=== PATIENT | female | born 1955 | race Two or more races ===

== ENCOUNTER 2018-12-26 04:14 | Inpatient (IN) | payer MEDICARE, MEDICAID ==
[~2018-12-26] VITALS: Ht 154.9 cm; Wt 68.0 kg
--- NOTE | 2018-12-26 04:21 | NUR ---
PT BRIGHT FROM [facility] C/O LOW BLOOD SUGAR 35MD/DL, PT IS AAOX3, NOT IN RESPIRATORY DISTRESS, HOOKED TO PLANT MAINTENANCE MANAGER, V/S STABLE, KEPT RESTED AND COMFORTABLE, AWAITING ER MD FOR EVAL, WILL CONTIUE TO MONITOR.
--- NOTE | 2018-12-26 04:27 | NUR ---
AT BEDSIDE FOR EVAL.
[2018-12-26] MEDS ORDERED: MELA3TAB11 PO (04:48)
[2018-12-26] MEDS ORDERED: METH-406 PO (04:48)
[2018-12-26] MEDS ORDERED: BISA-79 PR (04:49)
[2018-12-26] MEDS ORDERED: NA P133E RC (04:49)
[2018-12-26] MEDS ORDERED: MAGN400O21 PO (04:50)
[2018-12-26] MEDS ORDERED: TYL2T MC (04:51)
[2018-12-26] MEDS ORDERED: ACET325C7 PO (04:51)
[2018-12-26] MEDS ORDERED: VITA1TAB56 PO (04:51)
[2018-12-26] MEDS ORDERED: AMLO5TAB9 PO (04:52)
[2018-12-26] MEDS ORDERED: CRAN450C PO (04:52)
--- NOTE | 2018-12-26 04:52 | NUR ---
BLOOD DRAWN, URINE SPECIMEN AND SENT TO LAB.
[2018-12-26] MEDS ORDERED: LIDO30CR TP (04:53)
[2018-12-26] MEDS ORDERED: SEVE800T8 PO (04:53)
[2018-12-26] MEDS ORDERED: METO25TA4 PO (04:53)
[2018-12-26] MEDS ORDERED: SENN-168 PO (04:54)
[2018-12-26] MEDS ORDERED: ESCI10TA PO (04:54)
[2018-12-26] MEDS ORDERED: GABA-534 PO (04:55)
[2018-12-26] MEDS ORDERED: HYDR-4077 PO (04:55)
[2018-12-26] MEDS ORDERED: *INS HUMA SQ (04:56)
[2018-12-26 04:57] LABS: BASOPHILS # (AUTO) 0.1 /CMM (0.0-0.2); BASOPHILS % (AUTO) 1.2 % (0.0-2.0); EOSINOPHILS % (AUTO) 2.5 % (0.0-6.0); HEMATOCRIT 38 % (33-45); HEMOGLOBIN 12.1 g/dL (11.5-14.8); LYMPHOCYTES # (AUTO) 0.8 /CMM (0.8-4.8); LYMPHOCYTES % (AUTO) 7.9 % (20.0-44.0); MEAN CORPUSCULAR HGB CONC 32 g/dl (31.0-36.0); MEAN CORPUSCULAR VOLUME 93 fL (82-100); MONOCYTES # (AUTO) 0.5 /CMM (0.1-1.30); MONOCYTES % (AUTO) 4.7 % (2.0-12.0); NEUTROPHILS # (AUTO) 8.5 /CMM (1.8-8.9); NEUTROPHILS % (AUTO) 83.7 % (43.0-81.0); PLATELET COUNT (AUTO) 219 /CMM (150-450); RED BLOOD CELL COUNT(AUTO) 4.07 MIL/uL (4.0-5.2); WHITE BLOOD COUNT (AUTO) 10.2 K/uL (4.3-11.0)
[2018-12-26] MEDS ORDERED: INSU100I26 SQ (04:57)
[2018-12-26 05:10] LABS: APPEARANCE,URINE Turbid (CLEAR); BILIRUBIN,URINE SMALL (NEGATIVE); BLOOD, URINE Moderate Ery/uL (NEGATIVE); COLOR,URINE Yellow (YELLOW); KETONES,URINE Trace (NEGATIVE); LEUKOCYTE ESTERASE ,URINE Large (NEGATIVE); NITRITE, URINE Negative (NEGATIVE); PROTEIN,URINE >=300 mg/dl (NEGATIVE); UGLUCOSE Negative (NEGATIVE); UROBILINOGEN,URINE 0.2 EU/dL (0.2)
[2018-12-26 05:12] LABS: ALBUMIN 3.5 g/dL (3.4-5.0); BILIRUBIN,DIRECT 0.1 mg/dL (0.0-0.2); BILIRUBIN,TOTAL 0.4 mg/dL (0.2-1.0); CALCIUM, SERUM 8.2 mg/dL (8.5-10.1); POTASSIUM 4.7 mmol/L (3.5-5.1); TOTAL PROTEIN, SERUM 7.6 g/dL (6.4-8.2)
[2018-12-26 05:28] LABS: BACTERIA,URINE 4+ /HPF (None Seen); WBC,URINE NONE SEEN /HPF (0-3)
[2018-12-26 05:43] LABS: THYROID STIMULATING HORMONE 5.84 uIU/mL (0.358-3.74)
[2018-12-26] MEDS ORDERED: ACETAMINOPHEN 325 MG TABLET PO PRN (06:00)
[2018-12-26] MEDS ORDERED: MAGNESIUM HYDROXIDE 30 ML UDC PO PRN (06:00)
[2018-12-26] MEDS ORDERED: HYDROCODONE/APAP 5/325MG 1 EACH TABLET PO PRN (06:00)
[2018-12-26] MEDS ORDERED: MAG HYDROX/AL HYDROX/SIMETH 30 ML UDC PO PRN (06:00)
[2018-12-26] MEDS ORDERED: MORPHINE SULFATE INJ 2 MG/ML DISP.SYRIN IV PRN (06:00)
[2018-12-26] MEDS ORDERED: CEFTRIAXONE 1GM BAG (ER ONLY) 1 GM/50 ML PIGGYBACK IV ONE (06:00)
[2018-12-26] MEDS ORDERED: TEMAZEPAM 15 MG CAPSULE PO PRN (06:00)
[2018-12-26] MEDS ORDERED: CEFTRIAXONE 1GM BAG (ER ONLY) 50 ML IV ONE (06:05)
--- NOTE | 2018-12-26 06:41 | NUR ---
REPORT GIVEN TO NIKOLAS MOODY FOR LUCIA.
--- NOTE | 2018-12-26 07:17 | NUR ---
REPORT GIVEN TO NIKOLAS OLSON FOR LUCIA.
--- NOTE | 2018-12-26 07:18 | NUR ---
ENDORSEMENT RECEIVED FROM HASMUKH RN FOR LUCIA. PATIENT ASLEEP IN BED, EASILY AROUSABLE BY VOICE. ON BENNIE HUGGER, HOOKED TO FERRYBOAT DECKHAND, STABLE VITAL SIGNS. WILL CONTINUE TO MONITOR.
[2018-12-26] MEDS: BLOOD SUGAR DIAGNOSTIC 1 EACH STRIP IN SCH ×7 (07:30→22:00)
[2018-12-26 08:00] VITALS: BP 128/57
[2018-12-26 08:30] VITALS: BP 128/64
--- NOTE | 2018-12-26 08:30 | NUR ---
RN OPENING NOTE RECEIVED PATENT FROM ER. ON ROOM AIR SATURATING 98%. PUT PATIENT ON TELE MONITOR SR 72. NO SIGN OF RESPIRATORY/CARDIAC DISTRESS OR SOB NOTED. BS 81. AT BEDSIDE. SAFETY MEASURES IN PLACE. BED LOW AND LOCKED. SIDE RAILS UPX2, CALL LIGHT IN REACH. WILL CON MONITOR.
--- NOTE | 2018-12-26 08:45 | NUR ---
BREAKFAST ORDERED FOR THE PATIENT AND SHE IS EATING THE BREAKFAST.
[2018-12-26] MEDS: ASPIRIN 81 MG TAB.CHEW PO SCH (11:22)
[2018-12-26 12:00] VITALS: BP 123/65
[2018-12-26] MEDS ORDERED: LIDOCAINE/PRILOCAINE (5GM) 5 GM TUBE TP SCH (12:00)
[2018-12-26] MEDS ORDERED: BLOOD SUGAR DIAGNOSTIC 1 EACH STRIP IN SCH (12:00)
[2018-12-26] MEDS: Sodium Chloride 154 MEQ in IV 10% DEXTROSE 1,000 ML IV PRN (13:40)
[2018-12-26] MEDS: METHOCARBAMOL (500MG) 500 MG TABLET PO SCH ×2 (14:11→17:00)
[2018-12-26] MEDS: SEVELAMER CARBONATE 800 MG TABLET PO SCH ×2 (14:12→18:38)
--- NOTE | 2018-12-26 14:12 | NUR ---
called pharmacy to bring insulin.
[2018-12-26] MEDS ORDERED: DEXTROSE 50%-WATER 50 ML DISP.SYRIN IV PRN (14:30)
[2018-12-26] MEDS: INSULIN REGULAR, HUMAN 100 UNIT/ML 3 ML VIAL SQ PRN ×3 (15:24→23:36)
[2018-12-26 16:00] VITALS: BP_SYST 154; BP_SYST 159; BP_DIAS 73; BP_DIAS 78
--- NOTE | 2018-12-26 18:39 | NUR ---
PT REFUSED ROBAXIN ZAElton 17:00 SAID IT MAKES ME FEEL DIZZY. BENEFITS EXPLAINED BUT STILL REFUSING.
--- NOTE | 2018-12-26 19:15 | NUR ---
PATIENT IN BED, AWAKE, AND VERBALLY RESPONSIVE. NO SOB. NO C/O PAIN AT THIS TIME. (L) AC IV ACCESS G20 INTACT, PATENT, AND FLUSHING WELL. SAFETY PRECAUTIONS IMPLEMENTED. BED LOCKED AND IN LOWEST POSITION. CALL LIGHT PLACED WITHIN REACH. WILL CONT. TO MONITOR. Addendum: 12/26/18 at 2053 by MENG HILL RN RN OPENING NOTES:
[2018-12-26 20:00] VITALS: BP 144/77
--- NOTE | 2018-12-26 20:00 | NUR ---
RN NOTE: PATIENT C/O NOT BEING ABLE TO BREATHE PROPERLY. O2 SAT ON RA 90%. CHARGE NURSE PLACED PATIENT ON O2 AT 2 LPM VIA NC, TOLERATING WELL, O2 SAT WENT UP TO 94%. PATIENT VERBALIZED FEELING OF RELIEF. WILL CONT. TO MONITOR.
--- NOTE | 2018-12-26 21:18 | NUR ---
RN CLOSING NOTE NO SIGNIFICANT CHANGE DURING THE SHIFT. BS COVERED TROUGH SLIDING SCALE. NO SIGN OF RESPIRATORY/CARDIAC DISTRESS OR SOB NOTED. SKIN INTACT. KEPT CLEAN AND DRY. DIAPER ON. ALL NEEDS ATTENDED. BED LOW AND LOCKED, SIDE RAILS UP X2, CALL LIGHT IN REACH. ENDORSED TO PM NURSE FOR LUCIA.
[2018-12-27] VITALS: BP 156/77
[2018-12-27] MEDS: SENNOSIDES 8.6 MG TABLET PO SCH ×2 (00:13→22:42)
[2018-12-27] MEDS: CEFTRIAXONE 1 G in IV D5W 50 ML IV SCH (05:20)
[2018-12-27 06:29] LABS: BASOPHILS # (AUTO) 0.1 /CMM (0.0-0.2); BASOPHILS % (AUTO) 1.3 % (0.0-2.0); EOSINOPHILS % (AUTO) 4.1 % (0.0-6.0); HEMATOCRIT 34 % (33-45); HEMOGLOBIN 11.1 g/dL (11.5-14.8); LYMPHOCYTES # (AUTO) 1.3 /CMM (0.8-4.8); LYMPHOCYTES % (AUTO) 16.6 % (20.0-44.0); MEAN CORPUSCULAR HGB CONC 32 g/dl (31.0-36.0); MEAN CORPUSCULAR VOLUME 92 fL (82-100); MONOCYTES # (AUTO) 0.7 /CMM (0.1-1.30); MONOCYTES % (AUTO) 8.5 % (2.0-12.0); NEUTROPHILS # (AUTO) 5.6 /CMM (1.8-8.9); NEUTROPHILS % (AUTO) 69.5 % (43.0-81.0); PLATELET COUNT (AUTO) 204 /CMM (150-450); RED BLOOD CELL COUNT(AUTO) 3.74 MIL/uL (4.0-5.2); WHITE BLOOD COUNT (AUTO) 8.1 K/uL (4.3-11.0)
[2018-12-27 06:50] LABS: CALCIUM, SERUM 7.9 mg/dL (8.5-10.1); CREATININE 5.2 mg/dL (0.6-1.3); MAGNESIUM 2.2 mg/dL (1.8-2.4); PHOSPHORUS 5.7 mg/dL (2.5-4.9); POTASSIUM 5.1 mmol/L (3.5-5.1)
--- NOTE | 2018-12-27 07:10 | NUR ---
RN OPENING NOTES RECEIVED PATIENT SLEEPING IN BED, EASILY AROUSED. SHE IS AOX2-3, VERBAL, AND ON BEDREST. SHE IS ON 2L OF O2 VIA NC, TOLERATING WELL, NO S/SX OF RESP DISTRESS OR SOB. PT DENIES ANY PAIN AT THIS TIME. SKIN IS INTACT, SWELLING AGROUND THE FACE AND EYES IS PRESENT. SHE IS ON CONSISTENT CARB DIET, TOLERATING WELL. LAC 20 INFUSING D10 AT 50 ML.HR, PALOMA AV SHUNT IS INTACT. SAFETY MEASURES HAVE BEEN IMPLEMENTED, CALL LIGHT IS WITHIN REACH, BED IS IN LOWEST AND LOCKED POSITION, SIDE RIALS UP X2, WILL CONTINUE TO MONITOR FOR ANY CHANGES.
--- NOTE | 2018-12-27 07:20 | NUR ---
RN CLOSING NOTES: PATIENT IN BED, ASLEEP, BUT EASILY AROUSABLE. NO SOB. NO C/O PAIN AT THIS TIME. SAFETY PRECAUTIONS IMPLEMENTED. BED LOCKED AND IN LOWEST POSITION. ALL NEEDS HAVE BEEN MET. CALL LIGHT PLACED WITHIN REACH. OFFERED TO SIGN CONSENT FOR HEMODIALYSIS. PATIENT DECLINED AT THIS TIME AND STATES SHE WANTS TO GO HOME. PATIENT AGREED TO SIGN HEMODIALYSIS CONSENT WHEN IT'S BEEN SCHEDULED. ENDORSED TO AM SHIFT NURSE FOR CONTINUITY OF CARE. Addendum: 12/27/18 at 0729 by MENG HILL RN NO SIGNS OF HYPOGLYCEMIA DURING SHIFT.
[2018-12-27] MEDS: BLOOD SUGAR DIAGNOSTIC 1 EACH STRIP IN SCH ×7 (07:55→22:43)
[2018-12-27 08:00] VITALS: BP_SYST 153; BP_DIAS 60; BP_DIAS 68
[2018-12-27] MEDS: METOPROLOL SUCCINATE 25 MG TAB.SR.24H PO SCH (08:33)
[2018-12-27] MEDS: VITAMIN B COMP W-C 1 TAB TABLET PO SCH (08:33)
[2018-12-27] MEDS: SEVELAMER CARBONATE 800 MG TABLET PO SCH ×3 (08:33→18:00)
[2018-12-27] MEDS: GABAPENTIN 300 MG CAPSULE PO SCH (08:33)
[2018-12-27] MEDS: ESCITALOPRAM OXALATE (10 MG) 10 MG TABLET PO SCH (08:34)
[2018-12-27] MEDS: hydrALAZINE HCL 50 MG TABLET PO SCH (08:34)
[2018-12-27] MEDS: ASPIRIN 81 MG TAB.CHEW PO SCH (08:34)
[2018-12-27] MEDS: BISACODYL (5 MG) 5 MG TABLET.DR PO SCH (08:34)
[2018-12-27] MEDS: AMLODIPINE BESYLATE 5 MG TABLET PO SCH (08:34)
[2018-12-27] MEDS: METHOCARBAMOL (500MG) 500 MG TABLET PO SCH ×3 (08:40→17:00)
[2018-12-27] MEDS: INSULIN REGULAR, HUMAN 100 UNIT/ML 3 ML VIAL SQ PRN ×3 (12:23→22:58)
[2018-12-27] MEDS ORDERED: LIDOCAINE 1% INJ 50 ML MDV IJ ONE (13:00)
[2018-12-27 16:00] VITALS: BP 138/87
[2018-12-27] MEDS: ONDANSETRON HCL/PF 4 MG/2 ML VIAL IVP PRN (17:32)
--- NOTE | 2018-12-27 18:35 | NUR ---
1700 and 1800 meds unable to admin due to pt being dialyzed.
--- NOTE | 2018-12-27 19:30 | NUR ---
RN CLOSING NOTES PATIENT IS RESTING COMFORTABLY IN BED, DENIES ANY PAIN OR DISCOMFORT AT THIS TIME. PT IS BEING DIALYZED, TOLERATING WELL. PT NEEDS HAVE BEEN MET, VITAL SIGNS ARE STABLE, NO ACUTE CHANGES OCCURRED THROUGHOUT THE SHIFT. SAFETY MEASURES HAVE BEEN IMPLEMENTED, CALL LIGHT IS WITHIN REACH, BED IS IN LOWEST AND LOCKED POSITION, SIDE RAILS UP X2, PT HAS BEEN ENDORSED TO NIGHTSHIFT RN FOR CONTINUITY OF CARE.
[2018-12-27] MEDS: Sodium Chloride 154 MEQ in IV 10% DEXTROSE 1,000 ML IV PRN (19:58)
[2018-12-27 20:00] VITALS: BP 168/69
--- NOTE | 2018-12-27 22:30 | NUR ---
RN NOTES RECEIVED ENDORSEMENT REPORT FROM NIKOLAS LYONS. FOUND Pt ASLEEP IN BED. Pt INSISTED THAT SHE LIKES SLEEPING ON THE OPPOSITE END OF THE BED. BED ALARM ON FOR SAFETY. Pt IS A/OX4, VERBAL, ABLE TO MAKE NEEDS KNOWN. IV ACCESS ON LAC #20G, D10 INFUSING @50ML/HR. S/P HD TODAY WITH 3L OUT. PALOMA AV FISTULA. SAFETY MEASURES IN PLACE. BED LOW, LOCKED, HOB ELEVATED, SIDE RAILS UP, CALL LIGHT AND BEDSIDE TABLE WITHIN REACH. WILL CONTINUE TO MONITOR Pt's CONDITION AND SAFETY THROUGHOUT THE NIGHT.
--- NOTE | 2018-12-27 22:45 | NUR ---
RN NOTES INFORMED SALES DEVELOPMENT ASSOCIATENIKOLAS ROBERTS OF THERE BEING 2 ORDERS OF ACCUCHECKS. SAID IT IS OK TO DC THE EARLIER ONE AND KEEP THE MOST RECENT ACCUCHECK ORDER.
[2018-12-28] VITALS: BP 168/69
[2018-12-28] MEDS: CEFTRIAXONE 1 G in IV D5W 50 ML IV SCH (05:35)
[2018-12-28] MEDS: BLOOD SUGAR DIAGNOSTIC 1 EACH STRIP IN SCH ×4 (07:30→22:00)
--- NOTE | 2018-12-28 07:30 | NUR ---
RN OPENING NOTES RECEIVED PATIENT SLEEPING IN BED, EASILY AROUSED. SHE IS AOX3, VERBAL. SHE IS ON ROOM AIR, NO S/SX OF RESP DISTRESS OR SOB. PT DENIES ANY PAIN AT THIS TIME. SKIN IS INTACT, SWELLING AGROUND THE FACE AND EYES NOTED. LAC 20 INFUSING D10 AT 50 ML/HR. PALOMA AV SHUNT IS INTACT. SAFETY MEASURES HAVE BEEN IMPLEMENTED, CALL LIGHT IS WITHIN REACH, BED IS IN LOWEST AND LOCKED POSITION, SIDE RIALS UP X3, WALKER AT BEDSIDE, BED ALARM ON. WILL CONTINUE TO MONITOR FOR ANY MADRID
--- NOTE | 2018-12-28 07:40 | NUR ---
RN CLOSING NOTES NO SIGNIFICANT CHANGES IN Pt's CONDITION. Pt IS RESTING COMFORTABLY IN BED, WITH EVEN AND UNLABORED RESPIRATIONS. NO S/S OF ACUTE DISTRESS OR SOB NOTED DURING THE NIGHT. ALL NEEDS MET AND ATTENDED TO. SAFETY MEASURES IN PLACE. WILL ENDORSE TO DAYSHIFT RN FOR Pt's LUCIA.
[2018-12-28 08:00] VITALS: BP 166/75
[2018-12-28] MEDS: VITAMIN B COMP W-C 1 TAB TABLET PO SCH (08:26)
[2018-12-28] MEDS: SEVELAMER CARBONATE 800 MG TABLET PO SCH ×3 (08:26→18:45)
[2018-12-28] MEDS: ASPIRIN 81 MG TAB.CHEW PO SCH (08:27)
[2018-12-28] MEDS: GABAPENTIN 300 MG CAPSULE PO SCH (08:27)
[2018-12-28] MEDS: BISACODYL (5 MG) 5 MG TABLET.DR PO SCH (08:27)
[2018-12-28] MEDS: ESCITALOPRAM OXALATE (10 MG) 10 MG TABLET PO SCH (08:27)
[2018-12-28] MEDS: hydrALAZINE HCL 50 MG TABLET PO SCH (08:29)
[2018-12-28] MEDS: AMLODIPINE BESYLATE 5 MG TABLET PO SCH (08:29)
[2018-12-28] MEDS: METOPROLOL SUCCINATE 25 MG TAB.SR.24H PO SCH (08:29)
[2018-12-28] MEDS: INSULIN REGULAR, HUMAN 100 UNIT/ML 3 ML VIAL SQ PRN ×4 (08:34→23:09)
[2018-12-28] MEDS: METHOCARBAMOL (500MG) 500 MG TABLET PO SCH ×3 (08:41→17:00)
--- NOTE | 2018-12-28 09:00 | NUR ---
MS RN NOTE PATIENT REFUSED ROBAXIN AND SAID: "IF I TAKE IT, MY LEGS GETS NUMBS. I NEVER GET THAT MEDICATION.'' BENEFITS AND SIDE EFFECTS EXPLAINED. PT REFUSED.
--- NOTE | 2018-12-28 09:28 | NUR ---
MS RN NOTE PATIENT WANTED TO GET OUT OF THE BED AND WALK. SHE SAID: "I FEEL TIRED BEING IN THE BED ALL THE DAY." ACCORDING TO PT BLESSING PATENT IS SAFE TO AMBULATE WITH ASSIST. PATIENT TOOK FOR 2 MIN WALK WITH WALKER WITH THE HELP OF NURSE AND STUDENT NURSE. PATIENT RETURNED TO BED SAFELY. SOB NOTED. PUT HER ON 2L NC. BED LOCKED AND LOW, SIDE RAILS UP X3. BED ALARM ON. CALL LIGHT IN REACH.
--- NOTE | 2018-12-28 12:43 | NUR ---
MS RN NOTE PATIENT AND HER SAID THEY NEED PATIENT TO BE DISCHARGED TODAY AND IF DOCTOR DOES NOT CLEAR PATIENT THEY WILL LEAVE ANYWAY. THE RISK FACTOR EXPLAINED TO THEM AND JUST TOLD THEM TO WAIT SEE THE DOCTOR AND THEY AGREED. DR BEAR MADE AWARE ABOUT PATIENT'S REQUEST. DR. BEAR MADE AWARE RECENT BS 253, TROPONIN 0.118, NO COMPLAIN OF CHEST PAIN AND PATIENT IS EATING WELL. DR BEAR SAID HE WILL MAKE ROUND AND SEE PATIENT.
--- NOTE | 2018-12-28 13:06 | NUR ---
MS RN NOTE RAHEEM Malcolm AT BEDSIDE WORKING WITH DR. BEAR. MADE AWARE REGARDING PATIENT'S REQUEST TO GET DISCHARGED. ALSO INFORMED ABOUT TROPONIN 0.118 ON 12/27/18 AND LAST BS 253, NO COMPLAIN OF CHEST PAIN. SHE SAID SHE WILL CHECK WITH DR BEAR.
[2018-12-28] MEDS ORDERED: CEPH-569 PO (15:59)
[2018-12-28 16:00] VITALS: BP 157/75
--- NOTE | 2018-12-28 16:21 | NUR ---
DR. BEAR PUT D/C ORDER. CALLED [facility] [employer] TO ARRANGE THE TRANSPORTATION. [facility]AVAL CONTACTED WITH [facility] FOR THE ARRANGEMENT BUT APPARENTLY THERE IS SOME INSURANCE ISSUES AND PATIENT CAN BE TRANSFERRED TOMORROW MORNING. DHAVAL TALKED TO THE PATIENT'S AND BOTH PATIENT AND AGREED. Addendum: 12/28/18 at 1857 by XAVIER ODEN RN DR. BEAR MADE AWARE.
--- NOTE | 2018-12-28 19:15 | NUR ---
MS RN NOTE PATIENT IN BED A/0 X 3-4. PATIENT SLEEPING WITH HEAD AT FOOT OF THE BED. PATIENT ADVISED TO SLEEP AT THE HEAD OF THE BED FOR HEAD PATIENT REFUSED. PATIENTS ON 2 L OS TOLERATING WELL AT THIS TIME. PATIENT DENIES SOB/ CHEST PAIN. PATIENT ON IV FLUIDS IV PATENT AND INTACT NO S/S OF INFECTION OR INFILTRATION. PATIENT. SAFETY PRECAUTIONS IN PLACE CALL LIGHT WITHIN HAND. RN WILL CONTINUE TO MONITIOR.
--- NOTE | 2018-12-28 19:18 | NUR ---
RN CLOSING NOTES NO SIGNIFICANT CHANGES IN Pt's CONDITION. Pt IS RESTING COMFORTABLY IN BED, WITH EVEN AND UNLABORED RESPIRATIONS. PATIENT ON 2L NC, NO S/S OF ACUTE DISTRESS OR SOB NOTED DURING THE SHIFT. ALL NEEDS MET AND ATTENDED. . WAS AT BEDSIDE EARLIER. SAFETY MEASURES IN PLACE. BED LOCKED AND LOW, SIDE RAILS UP X2, BED ALARM ON, WALKER AT BEDSIDE. ENDORSED TO PM RN FOR Pt's LUCIA. Addendum: 12/28/18 at 1922 by XAVIER ODEN RN RIGHT EYE BLINDNESS, REPORTED TO THE PM NURSE.
[2018-12-28] MEDS: Sodium Chloride 154 MEQ in IV 10% DEXTROSE 1,000 ML IV PRN (19:22)
[2018-12-28 20:00] VITALS: BP 123/75
[2018-12-28] MEDS: SENNOSIDES 8.6 MG TABLET PO SCH (22:00)
[2018-12-29] VITALS: BP 123/75
[2018-12-29 04:00] VITALS: BP 117/52
[2018-12-29] MEDS: CEFTRIAXONE 1 G in IV D5W 50 ML IV SCH (05:09)
--- NOTE | 2018-12-29 07:00 | NUR ---
RN OPENING NOTES RECEIVED PATIENT AOX4, VERBAL. SHE IS ON NC 4 L WITH COOL ARESOAL , NO S/S OF RESP DISTRESS OR SOB. PT DENIES ANY PAIN AT THIS TIME. SWELLING AGROUND THE FACE AND EYES NOTED. RIGHT VISION LOSS. LAC 20 G INFUSING D10 AT 50 ML/HR. PALOMA AV GRAFT IS INTACT. PATIENT COMPLAINING OF BEING WET AND HAD BOWEL MOVEMENT MORE THAN 1 HOUR AND SHE ALREADY CALLED SEVERAL TIMES TO BE CLEANED UP BUT NO ONE CAME. PATIENT SHEETS AND GOWN WAS DIRTY AND THERE WAS POOP ALL OVER HER BED. PATIENT WAS CLEANED, REDNESS NOTED ON THE SACRAL AREA. ZGUARD APPLIED. SAFETY MEASURES HAVE BEEN IMPLEMENTED, CALL LIGHT IS WITHIN REACH, BED IS IN LOWEST AND LOCKED POSITION, SIDE RIALS UP X3, WALKER AT BEDSIDE, BED ALARM ON. WILL CONTINUE TO MONITOR CLOSELY.
[2018-12-29 08:00] VITALS: BP 160/73
[2018-12-29] MEDS: SEVELAMER CARBONATE 800 MG TABLET PO SCH ×4 (08:00→17:04)
[2018-12-29 08:14] LABS: CALCIUM, SERUM 8.2 mg/dL (8.5-10.1); CREATININE 5.1 mg/dL (0.6-1.3); PHOSPHORUS 4.9 mg/dL (2.5-4.9); POTASSIUM 5.4 mmol/L (3.5-5.1)
[2018-12-29 08:23] LABS: BASOPHILS # (AUTO) 0.1 /CMM (0.0-0.2); BASOPHILS % (AUTO) 1.2 % (0.0-2.0); EOSINOPHILS % (AUTO) 5.2 % (0.0-6.0); HEMATOCRIT 35 % (33-45); HEMOGLOBIN 11.1 g/dL (11.5-14.8); LYMPHOCYTES # (AUTO) 1.2 /CMM (0.8-4.8); LYMPHOCYTES % (AUTO) 13.8 % (20.0-44.0); MEAN CORPUSCULAR HGB CONC 32 g/dl (31.0-36.0); MEAN CORPUSCULAR VOLUME 94 fL (82-100); MONOCYTES # (AUTO) 0.7 /CMM (0.1-1.30); MONOCYTES % (AUTO) 8.4 % (2.0-12.0); NEUTROPHILS # (AUTO) 6.2 /CMM (1.8-8.9); NEUTROPHILS % (AUTO) 71.4 % (43.0-81.0); PLATELET COUNT (AUTO) 178 /CMM (150-450); WHITE BLOOD COUNT (AUTO) 8.7 K/uL (4.3-11.0)
[2018-12-29] MEDS: INSULIN REGULAR, HUMAN 100 UNIT/ML 3 ML VIAL SQ PRN ×4 (08:56→22:55)
[2018-12-29] MEDS: BLOOD SUGAR DIAGNOSTIC 1 EACH STRIP IN SCH ×4 (08:56→22:00)
[2018-12-29] MEDS: AMLODIPINE BESYLATE 5 MG TABLET PO SCH ×2 (09:00→10:03)
[2018-12-29] MEDS: METOPROLOL SUCCINATE 25 MG TAB.SR.24H PO SCH ×2 (09:00→10:03)
[2018-12-29] MEDS: ESCITALOPRAM OXALATE (10 MG) 10 MG TABLET PO SCH ×2 (09:00→09:59)
[2018-12-29] MEDS: hydrALAZINE HCL 50 MG TABLET PO SCH ×2 (09:00→10:02)
[2018-12-29] MEDS: VITAMIN B COMP W-C 1 TAB TABLET PO SCH ×2 (09:00→09:59)
[2018-12-29] MEDS: ASPIRIN 81 MG TAB.CHEW PO SCH ×2 (09:00→09:59)
[2018-12-29] MEDS: GABAPENTIN 300 MG CAPSULE PO SCH ×2 (09:00→09:59)
[2018-12-29] MEDS: BISACODYL (5 MG) 5 MG TABLET.DR PO SCH (09:00)
--- NOTE | 2018-12-29 09:00 | NUR ---
PATIENT WILL HAVE HEMODIALYSIS THIS MORNING. AM MEDICATION HOLD.
--- NOTE | 2018-12-29 09:00 | NUR ---
PATIENT REFUSED ROBAXIN AND SHE SAID ; "IT MAKES MY FEET NUMB, I NEVER GET THOSE." BENEFITS AND RISK FACTORS EXPLAINED. PATIENT REFUSED.
--- NOTE | 2018-12-29 09:10 | NUR ---
HEMODIALYSIS NURSE AT BEDSIDE.
[2018-12-29] MEDS: METHOCARBAMOL (500MG) 500 MG TABLET PO SCH ×3 (09:15→17:00)
--- NOTE | 2018-12-29 09:30 | NUR ---
HEMODIALYSIS NURSE DID NOT DO THE DIALYSIS BECAUSE HE SAID THAT HE COULD NOT GET ACCESS FROM THE AV GRAFT AND THERE IS BLOOD CLOTS THERE. HE WILL RETURN LATE AFTER NOON TO DO DIALYSIS. Addendum: 12/29/18 at 0959 by XAVIER ODEN RN CHARGE NURSE AND DR. BEAR MADE AWARE.
[2018-12-29] MEDS: ONDANSETRON HCL/PF 4 MG/2 ML VIAL IVP PRN (11:23)
--- NOTE | 2018-12-29 12:04 | NUR ---
ANOTHER HEMODIALYSIS NURSE AT BEDSIDE BUT STILL WAS NOT ABLE TO DO THE DIALYSIS BECAUSE THE FISTULA IS CLOTTED. DR BYERS AND CHARGE NURSE MADE AWARE. WILL NOTIFY VASCULAR SURGEON.
--- NOTE | 2018-12-29 12:07 | NUR ---
MATEUS HEMODIALYSIS NURSE TALKED TO DR BYERS REGARDING CLOTTED AV GRAFT AND ACCORDING TO DR BYERS WE NEED TO CONTACT VASCULAR SURGEON DR. PRUITT. DR. BEAR MADE AWARE. WILL FOLLOW UP.
--- NOTE | 2018-12-29 13:05 | NUR ---
PATIENT ON DEXTROSE 10% IV AND BLOOD SUGAR IS HIGH. DR. BYERS MADE AWARE, ORDERED TO CANCEL THE IV. ORDER CARRIED OUT.
--- NOTE | 2018-12-29 14:19 | NUR ---
CALLED DR. PRUITT OFFICE (VASCULAR SURGEON) AT [phone] AND TALKED TO HIS EVENING SITTER HERMANN REGARDING AV GRAFT BEING CLOTTED. SHE WILL TALK TO THE DOCTOR AND LET US KNOW.
[2018-12-29 16:00] VITALS: BP 155/73
--- NOTE | 2018-12-29 16:00 | NUR ---
HAD A CALL FROM OR. PATIENT WILL HAVE SURGERY TOMORROW MORNING 12/30/18 AT 7:00 AM.
[2018-12-29] MEDS ORDERED: SODIUM POLYSTYRENE SULFONATE 15 G/60 ML BOTTLE PO ONE (19:30)
--- NOTE | 2018-12-29 19:30 | NUR ---
MS RN NOTE PATIENT RECEIVED FROM DAY SHIFT A/O X 2-3. PATIENT DENIES CHEST PAIN AT THIS TIME, BUT COMPLAINS OF MINOR SOB. PATIENT SAT UP AND SOB RESOLVED. PATIENT DENIES PAIN OR DISCOMFORT AT THIS TIME. PATIENT IV PATENT AND INTACT NO S/S OF INFILTRATION OR INFECTION. PATIENT AWARE OF PROCEDURES TOMORROW. GOALS AND POC DISCUSSED WITH PATIENT .PATIENT VERBALIZES UNDERSTANDING. SAFETY PRECAUTIONS IN PLACE. CALL LIGHT IN HAND SIDE RAILS UP X 2. RN WILL CONTINUE TO MONITOR FOR CHANGES.
--- NOTE | 2018-12-29 19:39 | NUR ---
RN CLOSING NOTES NO SIGNIFICANT CHANGES IN Pt's CONDITION. Pt IS RESTING COMFORTABLY IN BED, WITH EVEN AND UNLABORED RESPIRATIONS. PATIENT ON 4L NC, NO S/S OF ACUTE DISTRESS OR SOB NOTED DURING THE SHIFT. RIGHT EYE VISION LOSS BECAUSE OF DIABETES. DR COLEMAN VASCULAR SURGEON WAS AT BEDSIDE EARLIER AND ORDERED KAYEXALATE. ORDER CARRIED OUT. ALL NEEDS MET AND ATTENDED. WAS AT BEDSIDE EARLIER. SAFETY MEASURES IN PLACE. BED LOCKED AND LOW, SIDE RAILS UP X2, BED ALARM ON, WALKER AT BEDSIDE. ENDORSED TO PM RN FOR Pt's LUCIA.
[2018-12-29] MEDS: SENNOSIDES 8.6 MG TABLET PO SCH (22:00)
[2018-12-30] VITALS: BP 124/74
--- NOTE | 2018-12-30 | NUR ---
MS RN NOTE PATIENT PLACED NPO FOR PROCEDURE TOMORROW MORNING
[2018-12-30 06:35] LABS: CALCIUM, SERUM 8.3 mg/dL (8.5-10.1); CREATININE 5.8 mg/dL (0.6-1.3); MAGNESIUM 2.3 mg/dL (1.8-2.4); POTASSIUM 5.1 mmol/L (3.5-5.1)
[2018-12-30] MEDS: CEFTRIAXONE 1 G in IV D5W 50 ML IV SCH (06:50)
[2018-12-30 06:51] LABS: BASOPHILS # (AUTO) 0.1 /CMM (0.0-0.2); BASOPHILS % (AUTO) 1.1 % (0.0-2.0); EOSINOPHILS % (AUTO) 3.4 % (0.0-6.0); HEMATOCRIT 33 % (33-45); HEMOGLOBIN 10.5 g/dL (11.5-14.8); LYMPHOCYTES # (AUTO) 1.2 /CMM (0.8-4.8); LYMPHOCYTES % (AUTO) 13.1 % (20.0-44.0); MEAN CORPUSCULAR HGB CONC 32 g/dl (31.0-36.0); MEAN CORPUSCULAR VOLUME 93 fL (82-100); MONOCYTES # (AUTO) 0.7 /CMM (0.1-1.30); MONOCYTES % (AUTO) 8.4 % (2.0-12.0); NEUTROPHILS # (AUTO) 6.5 /CMM (1.8-8.9); PLATELET COUNT (AUTO) 178 /CMM (150-450); WHITE BLOOD COUNT (AUTO) 8.8 K/uL (4.3-11.0)
[2018-12-30 08:00] VITALS: BP 149/72
[2018-12-30] MEDS: SEVELAMER CARBONATE 800 MG TABLET PO SCH ×2 (08:00→12:13)
[2018-12-30] MEDS ORDERED: ANESTHESIA TRAY IN PYXIS 1 EA TRAY MC ONE (08:38)
[2018-12-30] MEDS ORDERED: LIDOCAINE HCL/MPF 1% 30 ML VIAL IJ ONE (08:38)
[2018-12-30] MEDS ORDERED: HEPARIN SODIUM, PORCINE 1,000 UNIT/ML VIAL ONE (08:39)
[2018-12-30] MEDS: ASPIRIN 81 MG TAB.CHEW PO SCH (09:00)
[2018-12-30] MEDS: METOPROLOL SUCCINATE 25 MG TAB.SR.24H PO SCH (09:00)
[2018-12-30] MEDS: hydrALAZINE HCL 50 MG TABLET PO SCH (09:00)
[2018-12-30] MEDS: GABAPENTIN 300 MG CAPSULE PO SCH (09:00)
[2018-12-30] MEDS: BISACODYL (5 MG) 5 MG TABLET.DR PO SCH (09:00)
[2018-12-30] MEDS: METHOCARBAMOL (500MG) 500 MG TABLET PO SCH ×2 (09:00→12:13)
[2018-12-30] MEDS: AMLODIPINE BESYLATE 5 MG TABLET PO SCH (09:00)
[2018-12-30] MEDS: VITAMIN B COMP W-C 1 TAB TABLET PO SCH (09:00)
[2018-12-30] MEDS: ESCITALOPRAM OXALATE (10 MG) 10 MG TABLET PO SCH (09:00)
[2018-12-30] MEDS: BLOOD SUGAR DIAGNOSTIC 1 EACH STRIP IN SCH ×2 (09:19→12:12)
[2018-12-30 10:38] VITALS: BP 155/72
--- NOTE | 2018-12-30 10:38 | NUR ---
POST OP RN NOTE RECEIVED PATIENT BACK TO FLOOR AFTER PROCEDURE. A/Ox3-4, ABLE TO SWALLOW ICE CHIPS. ATTACHED TO 1L O2 VIA NC, PATIENT DENIES SOB. L CW PERMACATH IJ SITE C/D/I/, NO BLEEDING NOTED. POST OP ORDERS RECEIVED AND IMPLEMENTED. VITALS STABLE, SEE DOCUMENTATION. CALL LIGHT WITHIN REACH, PATIENT ABLE TO MAKE NEEDS KNOWN, WILL CONT TO MONITOR
[2018-12-30 15:47] VITALS: BP 174/67
--- NOTE | 2018-12-30 16:14 | NUR ---
DC RN NOTE PER BRADY BEAR, PATIENT OKAY TO DC. HD COMPLETED TODAY WITH NEW L IJ PERMA CATH, 2L OUT. ON 4L O2 VIA NC. PATIENT REMAINS A/O x3-4. PERIORBITAL EDEMA NOTED. NO S/S STROKE. ATE SOLID FOOD. VOIDED. HAD A BOWEL MOVEMENT. DENIES CHEST PAIN, NAUSEA AND HEADACHE. BP ON LEFT ARM 155/66 PRIOR TO DEPARTURE. IV ON LEFT HAND REMOVED, CATH INTACT. R UA AV SHUNT + L PERMACATH IJ PRESENT. AT BEDSIDE. WOUND DOCUMENTATION COMPLETED, BELONGINGS CHECKLIST SIGNED, DENTURES IN MOUTH OF PATIENT. NO S/S HYPOGLYCEMIA NOTED. REPORT GIVEN TO NIKOLAS DON @[facility]
== END 2018-12-30 16:41 | DRG 637 ==
LOC: ER 04:26 → TELE1 07:24 → MEDSG1 12-27 11:15
PROVIDERS: ADMIT Nurse Practitioner Acute Care; ATTEND Nurse Practitioner Acute Care
PROC: 5A1D70Z Performance of Urinary Filtration, Intermittent, Less than 6 Hours Per Day (ICD-10-PCS; principal; 2018-12-27)
PROC: 0JH63XZ Insertion of Tunneled Vascular Access Device into Chest Subcutaneous Tissue and Fascia, Percutaneous Approach (ICD-10-PCS; 2018-12-30)
PROC: 02HV33Z Insertion of Infusion Device into Superior Vena Cava, Percutaneous Approach (ICD-10-PCS; 2018-12-30)
PROC: B518YZA Fluoroscopy of Superior Vena Cava using Other Contrast, Guidance (ICD-10-PCS; 2018-12-30)
DX: E11.649 Type 2 diabetes mellitus with hypoglycemia without coma (principal); I21.A1 Myocardial infarction type 2; G93.41 Metabolic encephalopathy; J15.9 Unspecified bacterial pneumonia; N39.0 Urinary tract infection, site not specified; I12.0 Hypertensive chronic kidney disease with stage 5 chronic kidney disease or end stage renal disease; T82.858A Stenosis of other vascular prosthetic devices, implants and grafts, initial encounter; N18.6 End stage renal disease; Z99.2 Dependence on renal dialysis; E11.22 Type 2 diabetes mellitus with diabetic chronic kidney disease; E03.9 Hypothyroidism, unspecified; E78.5 Hyperlipidemia, unspecified; B96.20 Unspecified Escherichia coli [E. coli] as the cause of diseases classified elsewhere; Z79.4 Long term (current) use of insulin; H54.61 Unqualified visual loss, right eye, normal vision left eye; E11.65 Type 2 diabetes mellitus with hyperglycemia; T38.3X5A Adverse effect of insulin and oral hypoglycemic [antidiabetic] drugs, initial encounter; Y83.8 Other surgical procedures as the cause of abnormal reaction of the patient, or of later complication, without mention of misadventure at the time of the procedure; Y92.129 Unspecified place in nursing home as the place of occurrence of the external cause; D64.9 Anemia, unspecified
CPT/HCPCS: 36415; 71045-TC; 80048-TC; 80061-TC; 80076-TC; 81000-TC; 82962-TC; 83605-TC; 83735-TC; 84100-TC; 84443-TC; 84484-TC; 85025-TC; 85610-TC; 85730-TC; 86850-TC; 87081-TC; 87086-TC; 87186-TC; 90935-TC; 93307-TC; 97116-TC; 97530-TC; C1750; C1769; G0378; J0696; J1644; J1815; J2405; J3490; J7060

== ENCOUNTER 2020-06-28 12:24 | Inpatient (IN) | payer MEDICARE, OTHER ==
[2020-06-28] VITALS (25 sets, daily range): BP systolic 22–112; BP diastolic 11–58
[~2020-06-28] VITALS: Ht 154.9 cm; Wt 45.4 kg
[~2020-06-28 12:24] MED LIST: *INS HUMA SQ; ACET325C7 GT; AMLO-212 GT; BISA-79 PR; CEPH-569 PO; CRAN450C PO; ESCI10TA GT; GABA-534 PO; HYDR-4077 PO; INSU100I26 SQ; LIDO30CR TP; MAGN400O21 PO; MELA3TAB47 PO; METH-406 PO; METO25TA4 PO; NA P133E RC; SENN-261 GT; SEVE800T8 GT; TYL2T MC; VITA1TAB56 PO
--- NOTE | 2020-06-28 12:26 | NUR ---
patient [email or web address], from care facility fro decreased LOC and blood sugar high. Connected to the monitor and pulse ox. kept comfortable, will continue to monitor accordingly.
--- NOTE | 2020-06-28 12:28 | NUR ---
IV access started on the left wrist G20, blood drawned and sent to lab. Allison cath in placed, F16 with cloudy and with sediment urine, output of 70cc.
[2020-06-28 12:55] LABS: BASOPHILS # (AUTO) 0.2 /CMM (0.0-0.2); BASOPHILS % (AUTO) 1.3 % (0.0-2.0); EOSINOPHILS % (AUTO) 3.3 % (0.0-6.0); HEMATOCRIT 38 % (33-45); HEMOGLOBIN 12.3 g/dL (11.5-14.8); LYMPHOCYTES # (AUTO) 2.1 /CMM (0.8-4.8); MEAN CORPUSCULAR HGB CONC 33 g/dl (31.0-36.0); MEAN CORPUSCULAR VOLUME 89 fL (82-100); MONOCYTES % (AUTO) 6.8 % (2.0-12.0); NEUTROPHILS # (AUTO) 10.5 /CMM (1.8-8.9); NEUTROPHILS % (AUTO) 73.6 % (43.0-81.0); PLATELET COUNT (AUTO) 471 /CMM (150-450); RED BLOOD CELL COUNT(AUTO) 4.21 MIL/uL (4.0-5.2); WHITE BLOOD COUNT (AUTO) 14.3 K/uL (4.3-11.0)
[2020-06-28 13:13] LABS: CARBON DIOXIDE 31 mmol/L (21-32); CHLORIDE 94 mmol/L (98-107); POTASSIUM 4.1 mmol/L (3.5-5.1); SODIUM SERUM 136 mmol/L (136-145)
[2020-06-28 13:14] LABS: CALCIUM, SERUM 9.3 mg/dL (8.5-10.1); GLUCOSE 386 mg/dL (74-106); UREA NITROGEN, BLOOD 92 mg/dL (7-18)
[2020-06-28 13:15] LABS: ALANINE AMINOTRANSFERASE 21 U/L (12-78); ALBUMIN 2.7 g/dL (3.4-5.0); ALKALINE PHOSPHATASE 276 U/L (46-116); ASPARTATE AMINOTRANSFERASE 32 U/L (15-37); BILIRUBIN,DIRECT 0.1 mg/dL (0.0-0.2); BILIRUBIN,TOTAL 0.4 mg/dL (0.2-1.0); CREATININE 4.2 mg/dL (0.6-1.3)
[2020-06-28 13:16] LABS: TOTAL PROTEIN, SERUM 8.9 g/dL (6.4-8.2)
[2020-06-28] MEDS ORDERED: METO25TA6 GT (13:26)
[2020-06-28] MEDS ORDERED: PANT40TA2 GT (13:26)
[2020-06-28] MEDS ORDERED: BISA10SU11 RC (13:26)
[2020-06-28] MEDS ORDERED: QUET25TA GT (13:26)
[2020-06-28] MEDS ORDERED: LACT10SO3 GT (13:26)
[2020-06-28] MEDS ORDERED: ASPI-1169 GT (13:26)
[2020-06-28] MEDS ORDERED: LORA-259 GT (13:26)
[2020-06-28] MEDS ORDERED: CLOP75TA15 GT (13:26)
[2020-06-28] MEDS ORDERED: LEVE500T9 GT (13:26)
[2020-06-28] MEDS ORDERED: VANCOMYCIN 1 GM in IV D5W 250 ML IV ONE (13:30)
[2020-06-28] MEDS ORDERED: PIPERACILLIN /TAZOBACTAM 3.375 G in IV D5W 50 ML IV ONE (13:30)
[2020-06-28 13:42] LABS: SERUM AMMONIA 18 umol/L (11-32); THYROID STIMULATING HORMONE 3.087 uIU/mL (0.358-3.74)
--- NOTE | 2020-06-28 13:55 | NUR ---
code blue started, patient pulseless and not responding to painful simuli. (see code sheet)
[2020-06-28] MEDS ORDERED: PROPOFOL 100 ML ONE (14:03)
[2020-06-28 15:11] LABS: ABG BASE EXCESS 0.8 mmol/L; ABG OXYGEN SATURATION 97.7 % (92.0-98.5); ABG PCO2 37.9 mmHg (35.0-45.0); ABG PH 7.435 (7.350-7.450); ABG PO2 106.6 mmHg (75.0-100.0); AaDO2 568.5 mmHg; COHb 0.4 % (0.5-1.5); O2Hb 97.3 % (94.0-97.0); PEEP,BG 5 cm H2O; SITE, ABG Left Brachial; VT, ABG 400 mL
[2020-06-28] MEDS ORDERED: EPINEPHRINE (1:1000) 5 MG in IV NS 0.9% 245 ML IV PRN ×2 (15:30→16:30)
--- NOTE | 2020-06-28 16:00 | NUR ---
PATIENT ADMITTED FROM ER S/P CP ARREST X 5. WITH ONGOING EPINEPHRINE DRIP AT 1.2 MCG/KG/MIN AT MAX DOSE. DOPAMINE AT 5 MCG/KG/MIN FOR BP SUPPORT. PATIENT NOTED WITH FIXED AND DILATED PUPILS, NO CORNEAL / GAG/ COUGH REFLEX. NO RESPONSE TO TACTILE/DEEP PAIN STIMULI. DR. COOMBS MADE AWARE OF PATIENT CONDITION/ADMISSION.
--- NOTE | 2020-06-28 16:00 | NUR ---
RN NOTES RECEIVED PT FROM ER IN ROOM 260, INTUBATED , DOES NOT RESPONDS TO PAINFUL STIMULI , DOES NOT FOLLOW COMMAND , PUPILS UNEQUAL AND FIXED, ON EPI DRIP AT 1.2 MCG/KG/MIN AND DOPAMINE AT 5 MCG/KG/MIN . PT LOOKS PALE AND FINGERS NAIL BLUEISH, R UPPER ARM AV SHUNT WITH POSITIVE BRUIT AND THRILL , PT IS RIGHT BKA , PA DRAINING TEA COLOR URINE TO GRAVITY, R GROIN TLC FEMORAL LINE AND L WRIST IV SITE G 20 , CLEAN, DRY AND INTACT. SR UP x3, CALL LIGHT WITHIN EASY REACH, BED LOCKED AND IN LOWEST POSITION, CONTINUE TO MONITOR .
--- NOTE | 2020-06-28 16:10 | NUR ---
Wheeled patient to ICU accompanied by RN, EMT, and RT. Dopamine, epi drip, vancomycin infusing while on transfer. RN assigned to patient at bedside to assume care.
[2020-06-28] MEDS ORDERED: ONDANSETRON HCL/PF 4 MG/2 ML VIAL IVP PRN (16:30)
[2020-06-28] MEDS ORDERED: DOPamine 400 MG in IV D5W 250 ML IV PRN (16:30)
[2020-06-28] MEDS ORDERED: DEXTROSE 50%-WATER 50 ML DISP.SYRIN IV PRN (16:30)
[2020-06-28] MEDS ORDERED: MORPHINE SULFATE INJ 2 MG/ML DISP.SYRIN IV PRN (16:30)
[2020-06-28] MEDS ORDERED: ACETAMINOPHEN 325 MG TABLET PO PRN (16:30)
[2020-06-28] MEDS ORDERED: Z GUARD REMEDY 2 OZ OINT TP PRN (16:30)
[2020-06-28] MEDS ORDERED: ZOLPIDEM TARTRATE 5 MG TABLET PO PRN (16:30)
[2020-06-28] MEDS ORDERED: MAGNESIUM HYDROXIDE 30 ML UDC PO PRN (16:30)
[2020-06-28] MEDS ORDERED: HYDROCODONE/APAP 5/325MG TABLET PO PRN (16:30)
[2020-06-28] MEDS ORDERED: MAG HYDROX/AL HYDROX/SIMETH 30 ML UDC PO PRN (16:30)
[2020-06-28] MEDS ORDERED: ETOMIDATE 2 MG/ML VIAL IV ONE (16:39)
[2020-06-28 16:57] LABS: BASOPHILS # (AUTO) 0.1 /CMM (0.0-0.2); BASOPHILS % (AUTO) 0.1 % (0.0-2.0); EOSINOPHILS % (AUTO) 0.6 % (0.0-6.0); HEMATOCRIT 39 % (33-45); HEMOGLOBIN 11.5 g/dL (11.5-14.8); LYMPHOCYTES # (AUTO) 11.1 /CMM (0.8-4.8); LYMPHOCYTES % (AUTO) 20.6 % (20.0-44.0); MEAN CORPUSCULAR HGB CONC 30 g/dl (31.0-36.0); MEAN CORPUSCULAR VOLUME 94 fL (82-100); MONOCYTES # (AUTO) 0.7 /CMM (0.1-1.30); MONOCYTES % (AUTO) 1.4 % (2.0-12.0); NEUTROPHILS # (AUTO) 41.7 /CMM (1.8-8.9); NEUTROPHILS % (AUTO) 77.3 % (43.0-81.0); PLATELET COUNT (AUTO) 389 /CMM (150-450)
--- NOTE | 2020-06-28 17:00 | NUR ---
RN NOTES DR SUN NOTIFIED REGARDING BG 569, TROPONIN 11.75, FINGER STICK BLOOD GLUCOSE =345, LA 14.7, NEW ORDER RECEIVED , CONTINUE TO MONITOR .
[2020-06-28 17:04] LABS: BILIRUBIN,TOTAL 0.8 mg/dL (0.2-1.0); CALCIUM, SERUM 10.4 mg/dL (8.5-10.1); CREATININE 4.3 mg/dL (0.6-1.3); POTASSIUM 3.3 mmol/L (3.5-5.1); TOTAL PROTEIN, SERUM 6.8 g/dL (6.4-8.2)
[2020-06-28 17:16] LABS: WHITE BLOOD COUNT (AUTO) 53.9 K/uL (4.3-11.0)
[2020-06-28 17:18] LABS: BAND % (MANUAL) 4 % (0.0-5.0); EOSINOPHILS % (MANUAL) 2 % (0-4); LYMPHOCYTES % (MANUAL) 21 % (16-48); MONOCYTES % (MANUAL) 2 % (0-11.0); NEUTROPHILS % (MANUAL) 71 (42-76)
--- NOTE | 2020-06-28 17:25 | NUR ---
PATIENT AT BEDSIDE, UPDATED WITH PATIENT STATUS-CODE STATUS IS VERIFIED. PER PATIENT -WANTS EVERYTHING DONE.
--- NOTE | 2020-06-28 17:26 | NUR ---
PT. 64 Y OLD REC. IN ER @ 1400 INTUBATED BY ER DURING THE CODE. ETT # 7.0 @ 23 CM SECURED AND PLACED ON VENT WITH NOTED SETTINGS, ALARMS ARE SET AND FUNCTIONAL, CONTINUE TO MONITOR. B/S BILATERALLY RALES SUCTIONED FOR MOD. BROWNISH SECRETIONS. PT. STABILIZED IN ER THAN TRANSFERRED TO ICU AND REPORT WILL BE PASS TO [facility]. AMBU BAG REMAIN AT THE BEDSIDE. Addendum: 06/28/20 at 1733 by KENDAL MULLEN RT Amended: Links added.
[2020-06-28] MEDS: INSULIN REGULAR, HUMAN 100 UNIT/ML 3 ML VIAL SQ PRN ×2 (17:31→20:30)
--- NOTE | 2020-06-28 17:35 | NUR ---
PATIENT NOTED ON PEA-CODE BLUE CALLED. MAX OUT ON EPI GTT/DOPAMINE GTT. CPR INITIATED.
[2020-06-28] MEDS: BLOOD SUGAR DIAGNOSTIC 1 EACH STRIP IN SCH ×2 (17:40→20:16)
[2020-06-28] MEDS ORDERED: HEPARIN INFUSION/D5W 500 ML IV PRN ×2 (18:00→18:30)
--- NOTE | 2020-06-28 18:00 | NUR ---
RN NOTES PT REMANINS UNSTABLE, SEE IV SPREAD SHEET FOR ALL IV MEDS DRIPS, WILL ENDORSE TO CENTRAL OFFICE TROUBLE SHOOTER NURSE FOR CONTINUITY OF CARE .
[2020-06-28] MEDS ORDERED: NOREPINEPHRINE 32 MG in IV NS 0.9% 218 ML IV PRN (18:30)
[2020-06-28] MEDS ORDERED: IV NS 0.9% 500 ML IV ONE (18:30)
[2020-06-28] MEDS: EPINEPHRINE (1:1000) 10 MG in IV NS 0.9% 240 ML IV PRN ×2 (18:59→22:07)
--- NOTE | 2020-06-28 19:30 | NUR ---
RN NOTES RECEIVED PATIENT UNSTABLE CONTINUES ON IV'S DRIPS SEE SPREAD SHEET. IV SITES INTACT NO S/S OF INFILTRATION NOTED. KEPT CLEAN AND COMFORTABLE. F/C INTACT WITH MINIMAL DRAINAGE. SAFETY MEASURES IN PLACE. WILL CONT TO MONITOR FOR LUCIA.
--- NOTE | 2020-06-28 20:14 | NUR ---
PRELIMINARY ECHO RESULT SHOWED EF 30-35%. RN ADVISED.
[2020-06-28] MEDS ORDERED: PIPERACILLIN /TAZOBACTAM 3.375 G in IV D5W 50 ML IV SCH (21:00)
[2020-06-28] MEDS ORDERED: ENOXAPARIN SODIUM 40 MG/0.4 ML DISP.SYRIN SQ SCH (21:00)
[2020-06-28] MEDS ORDERED: VASOPRESSIN INJ 20 UNIT/ML VIAL ONE (21:46)
--- NOTE | 2020-06-28 21:51 | NUR ---
RN NOTES Code blue started, patient pulseless PEA not responding to painful stimuli. (see code blue sheet)
[2020-06-28] MEDS ORDERED: VASOPRESSIN INJ 40 UNIT in IV NS 0.9% 38 ML IV PRN (22:00)
--- NOTE | 2020-06-28 22:10 | NUR ---
RN NOTES Code blue started, patient pulseless PEA not responding to painful stimuli. (see code blue sheet)
[2020-06-28] MEDS ORDERED: SODIUM BICARBONATE SYR 50 MEQ/50 ML DISP.SYRIN IV ONE ×2 (22:15)
[2020-06-28] MEDS ORDERED: EPINEPHRINE (1:10,000) SYRINGE 1 MG/10 ML DISP.SYRIN IVP ONE ×2 (22:15)
[2020-06-28] MEDS ORDERED: CALCIUM CHLORIDE 1,000 MG/10 ML DISP.SYRIN IV ONE (22:15)
[2020-06-28] MEDS ORDERED: FEE EMEERGENCY 1 MIN EA MC ONE (22:15)
--- NOTE | 2020-06-28 22:16 | NUR ---
RN NOTES Patient expires at 2216 ER MD pronounced the . Notified per he is on his way to hospital. postmortem care given. [employer] [facility] [employer] spoke to Idris [phone].
--- NOTE | 2020-06-28 22:30 | NUR ---
at bed side.
--- NOTE | 2020-06-28 23:00 | NUR ---
BODY PICKED UP BY SECURITY TRANSFER TO [facility].
[2020-06-29] MEDS ORDERED: VANCOMYCIN 500 MG in IV D5W 100 ML IV PRN (06:00)
[2020-06-29] MEDS ORDERED: PANTOPRAZOLE 40 MG VIAL IV SCH (09:00)
== END 2020-06-28 22:16 | DRG 871 ==
LOC: ER 12:31 → ICU 15:59
PROVIDERS: ADMIT Student in an Organized Health Care Education/Training Program; ATTEND Student in an Organized Health Care Education/Training Program
PROC: 5A12012 Performance of Cardiac Output, Single, Manual (ICD-10-PCS; principal; 2020-06-28)
PROC: 5A12012 Performance of Cardiac Output, Single, Manual (ICD-10-PCS; 2020-06-28)
PROC: 5A1935Z Respiratory Ventilation, Less than 24 Consecutive Hours (ICD-10-PCS; 2020-06-28)
PROC: 06HY33Z Insertion of Infusion Device into Lower Vein, Percutaneous Approach (ICD-10-PCS; 2020-06-28)
PROC: 0BH18EZ Insertion of Endotracheal Airway into Trachea, Via Natural or Artificial Opening Endoscopic (ICD-10-PCS; 2020-06-28)
PROC: 5A2204Z Restoration of Cardiac Rhythm, Single (ICD-10-PCS; 2020-06-28)
DX: A41.9 Sepsis, unspecified organism (principal); J96.00 Acute respiratory failure, unspecified whether with hypoxia or hypercapnia; N18.6 End stage renal disease; R65.21 Severe sepsis with septic shock; I21.A1 Myocardial infarction type 2; J18.9 Pneumonia, unspecified organism; I13.2 Hypertensive heart and chronic kidney disease with heart failure and with stage 5 chronic kidney disease, or end stage renal disease; E44.0 Moderate protein-calorie malnutrition; E87.2 Acidosis; Z68.1 Body mass index [BMI] 19.9 or less, adult; N39.0 Urinary tract infection, site not specified; I47.2 Ventricular tachycardia; I48.91 Unspecified atrial fibrillation; Z79.4 Long term (current) use of insulin; Z99.2 Dependence on renal dialysis; E11.22 Type 2 diabetes mellitus with diabetic chronic kidney disease; E78.5 Hyperlipidemia, unspecified; H54.61 Unqualified visual loss, right eye, normal vision left eye; Z79.82 Long term (current) use of aspirin; F32.9 Major depressive disorder, single episode, unspecified; I50.9 Heart failure, unspecified; E11.42 Type 2 diabetes mellitus with diabetic polyneuropathy; E11.65 Type 2 diabetes mellitus with hyperglycemia; D64.9 Anemia, unspecified; I46.9 Cardiac arrest, cause unspecified; Z20.822 Contact with and (suspected) exposure to COVID-19
CPT/HCPCS: 31720; 36415; 36600; 70450-TC; 71045-TC; 80048-TC; 80053-TC; 80076-TC; 82010-TC; 82140-TC; 82803-TC; 82962-TC; 83605-TC; 84443-TC; 84484-TC; 85025-TC; 85730-TC; 87040-TC; 87081-TC; 87086-TC; 87186-TC; 92950-TC; 93307-TC; 94002-TC; 99082-TC; A6253; A6403; C1751; G0378; J0171; J1265; J1644; J1650; J1815; J2543; J3370; J3490; J7040; J7050; J7060; U0003